=== PATIENT | male | born 1975 | race Hispanic/Latino ===

== ENCOUNTER 2022-12-17 19:55 | Emergency (ER) | payer SELFPAY ==
--- OUTSIDE RECORDS SUMMARY | 2022-12-17 20:02 | XMS REPORT | Continuity of Care Document ---
:1975 Author Organization [facility] t Address [address] [facility]. [address] [place] [address] Care Team Providers Name Role Phone Unavailable Unavailable Unavailable Problems This patient has no known problems. Allergies, Adverse Reactions, Alerts This patient has no known allergies or adverse reactions. Medications This patient has no known medications. Procedures This patient has no known procedures. Results Test Description Test Time Test Comments Results Result Comments Source CBC W/AUTO DIFF WITH PLATELETS 2021-11-07 04:24:30 Test Item Value Reference Range Interpretation Comme nts WBC (test code = 1001) 7.4 K/UL 3.5-11.0 RBC (test code = 1002) 4.82 M/UL 4.50-6.10 HEMOGLOBIN (test code = 15.2 G/DL 13.5-17.0 1003) HEMATOCRIT (test code = 43.6 % 40.0-51.0 1004) MCV (test code = 1005) 90.5 fL 80.0-99.0 MCH (test code = 1006) 31.5 PG 25.0-33.0 MCHC (test code = 1007) 34.9 G/DL 31.0-36.0 RDW (test code = 1038) 12.8 % 11.5-15.0 NEUTROPHILS (test code = 59.0 % 1008) LYMPHOCYTES (test code = 29.3 % 1010) MONOCYTES (test code = 1011) 8.3 % EOSINOPHILS (test code = 2.6 % 1012) BASOPHILS (test code = 1013) 0.5 % IMMATURE GRANULOCYTES (test 0.3 % code = 1036) NUCLEATED RBCS (test code = 0.0 /100 WBC'S See_Comment [Automated message] The 1065) system which ge nerated this result transmit alyssa reference range: 0.0. The reference range was not u sed to interpret this result as normal/abnormal . PLATELET COUNT (test code = 295 K/UL 774-194 0655) ABSOLUTE NEUTROPHILS (test 4.39 K/UL 1.50-7.50 code = 1066) ABSOLUTE LYMPHOCYTES (test 2.18 K/UL 1.00-4.00 code = 1067) ABSOLUTE MONOCYTES (test 0.62 K/UL 0.20-1.00 code = 1068) ABSOLUTE EOSINOPHILS (test 0.19 K/UL 0.00-0.50 code = 1040) ABSOLUTE BASOPHILS (test 0.04 K/UL 0.00-0.20 code = 1069) ABS IMMATURE GRANULOCYTES 0.02 K/UL 0.00-0.10 (test code = 1020) ABS NUCLEATED RBCS (test 0.00 K/UL 0.00-0.11 UN LESS OTHERWISE INDICATED, code = 02952) ALL TESTING PE RFORMED ATCLINICAL PATH [place] [address] LABORATORY DIRE CTOR: VIOLETTE ARELLANO M.D. CLIA NUMBER [id number] [place]. [id number] CHLAMYDIA, NAAT, [id number] 21:07:45 Test Item Value Reference Range Interpretation Comments CHLAMYDIA, NAAT NEGATIVE NEGATIVE IMPORTA NT NOTICE: SEE (test code = [place] [address]) [email or web address] Note: Assay methodology is nucleic acid amplification b y metal coater operator m ediated amplification ( TMA) utilizing the A ptima Combo 2 Assay. GONORRHEA, NAAT, [id number] 21:07:45 Test Item Value Reference Range Interpretation Comments GONORRHEA, NAAT NEGATIVE NEGATIVE IMPORTA NT NOTICE: SEE (test code = [place] [address]) [email or web address] Note: Assay methodology is nucleic acid amplification b y metal coater operator m ediated amplification ( TMA) utilizing the A ptima Combo 2 Assay. HIV 1/2 4TH GEN, RFLX [id number] 04:35:17 Test Item Value Reference Range Interpretation Comments HIV 1/2 4TH GEN, RFLX CONF (test NON-REACTIVE NON-REACTIVE code = 3514) HEPATITIS PANEL, [id number] 04:35:17 Test Item Value Reference Range Interpretation Comments HEPATITIS A IgM (test NON-REACTIVE NON-REACTIVE code = 11068) HEPATITIS B CORE IgM NON-REACTIVE NON-REACTIVE (test code = 4644) HEPATITIS B SURF AG NON-REACTIVE NON-REACTIVE (test code = 2739) HEPATITIS C ANTIBODY NON-REACTIVE NON-REACTIVE (test code = 4675) INTERPRETATION (NOTE) Hepatitis A HEPATITIS A: (test code sero logy shows no = 2552) evidence of acu te hepatitis A. INTERPRETATION (NOTE) Hepatitis B HEPATITIS B: (test code sero logy shows no = 995[address]) evidence of acu te hepatitis B and no indication of exposure to hepatitis B vir us in the previous colt eight months. INTERPRETATION (NOTE) Hepatitis C HEPATITIS C: (test code ser[place]y [place] no = [address]) evidence of exposure to hepatitisC viru s at this time. I t can take up to 12 months after exposure tothe hepatitis C vir us for antibodies to become detectab le in the blood in certain patient s. [id number] 04:08:49 Test Item Value Reference Range Interpretation Comments RPR RESULT (test NON-REACTIVE NON-REACTIVE code = 3501) RPR TITER (test NOT INDIC. NOT INDIC. UNLESS OTHE RWISE code = 3500) TITER INDICATED, ALL TESTING PERFORMED [facility] [address] [place] [address] 4 LABORATORY DIRE CTOR: VIOLETTE GURROLA M.D. CLIA NUMBER [id number] [facility] [place] [id number] LIPID [id number] 01:22:39 Test Item Value Reference Range Interpretation Comments CHOLESTEROL (test 226 MG/DL <200 H code = 2210) TRIGLYCERIDES (test 98 MG/DL <150 code = 2232) HDL CHOLESTEROL (test 45 MG/DL >39 code = 2220) CALC LDL CHOL (test 160 MG/DL <100 H NOTE: C ALCULATED LDL code = 2237) IS BASED ON IVANIA-BERNARDO METHOD WHICHINCLUDES ADJUSTABLE TRIGLYCERIDE:VL DL CHOLESTEROL RAT IO.THIS FACTOR VARIES B Y MEASURED TRIGLY CERIDE AND NON-HDLCHOL ESTEROL CONCENTRATIONS WITH INCREASED CALCU LATED LDL SEENIN HIGH ER TRIGLYCERIDE OR LOWER NON-HDL SPECIME NS. FOR MOREINFORMATION , SEE CLIENT ANNOUNCE MENT AT [email or web address] Knowledge /CalcLDL-C RISK RATIO LDL/HDL 3.56 RATIO <3.55 H (test code = 2238) COMPREHENSIVE METABOLIC [id number] 01:22:39 Test Item Value Reference Range Interpretation Comments GLUCOSE (test code = 91 MG/DL 70-99 2216) BUN (test code = 9 MG/DL 6-20 2207) CREATININE (test 0.97 MG/DL 0.80-1.40 code = 2214) eGFR (2020 CKD-EPI) 98 >60 (test code = 44872) ML/MIN/1.73 CALC BUN/CREAT (test 9 RATIO 6-28 code = 2235) SODIUM (test code = 141 MEQ/L 417-123 8979) POTASSIUM (test code 4.7 MEQ/L 3.5-5.4 = 2227) CHLORIDE (test code 105 MEQ/L 95-107 = 2214) CARBON DIOXIDE (test 22 MEQ/L 19-31 code = 220) CALCIUM (test code = 9.7 MG/DL 8.5-10.5 2208) PROTEIN, TOTAL (test 7.4 G/DL 6.1-8.3 code = 222) ALBUMIN (test code = 4.3 G/DL 3.5-5.2 2200) CALC GLOBULIN (test 3.1 G/DL 1.9-3.7 code = 2240) CALC A/G RATIO (test 1.4 RATIO 1.0-2.6 code = 2234) BILIRUBIN, TOTAL 0.5 MG/DL See_Comment [Automated message] (test code = 2207) The syste m which generated this result transmitted ref erence range: <=1.2. T he reference range was not used to int erpret this result as normal/abnormal . ALKALINE PHOSPHATASE 106 U/L 40-119 (test code = 2204) AST (test code = 25 U/L 9-50 2217) ALT (test code = 30 U/L 5-50 UNLESS OTH ERWISE 2218) INDICATED, ALL TESTING PERFORM [facility] [place] [address] [facility], [place] [id number] [place] [address] DIRECTOR: VIOLETTE ARELLANO M.D. CLIA NUMBER [id number] [place]EDIT[place] N O. [id number] CBC W/AUTO DIFF WITH [id number] 04:21:47 Test Item Value Reference Range Interpretation Comments WBC (test code = 7.3 K/UL 3.5-11.0 1001) RBC (test code = 4.95 M/UL 4.50-6.10 1002) HEMOGLOBIN (test code 15.5 G/DL 13.5-17.0 = 1003) HEMATOCRIT (test code 46.3 % 40.0-51.0 = 1004) MCV (test code = 93.5 fL 80.0-99.0 1005) MCH (test code = 31.3 PG 25.0-33.0 1006) MCHC (test code = 33.5 G/DL 31.0-36.0 1007) RDW (test code = 12.8 % 11.5-15.0 1038) NEUTROPHILS (test 62.7 % code = 1008) LYMPHOCYTES (test 26.5 % code = 1010) MONOCYTES (test code 8.1 % = 1011) EOSINOPHILS (test 1.5 % code = 1012) BASOPHILS (test code 0.8 % = 1013) IMMATURE GRANULOCYTES 0.4 % (test code = 1036) NUCLEATED RBCS (test 0.0 /100 WBC'S See_Comment [Aut omated code = 1065) message] The sy stem which generated this result transmitted reference range : 0.0. The refere nce range was not u sed to interpret th is result as normal/abnormal . PLATELET COUNT (test 299 K/UL 130-400 code = 1015) ABSOLUTE NEUTROPHILS 4.55 K/UL 1.50-7.50 (test code = 1066) ABSOLUTE LYMPHOCYTES 1.93 K/UL 1.00-4.00 (test code = 1067) ABSOLUTE MONOCYTES 0.59 K/UL 0.20-1.00 (test code = 1068) ABSOLUTE EOSINOPHILS 0.11 K/UL 0.00-0.50 (test code = 1040) ABSOLUTE BASOPHILS 0.06 K/UL 0.00-0.20 (test code = 1069) ABS IMMATURE 0.03 K/UL 0.00-0.10 GRANULOCYTES (test code = 1020) ABS NUCLEATED RBCS 0.00 K/UL 0.00-0.11 (test code = 44148) HEMOGLOBIN [id number] 03:20:00 Test Item Value Reference Range Interpretation Comments HEMOGLOBIN A1c (test code = 24136) 5.6 % 4.2-5.6
--- NOTE | 2022-12-17 22:00 | RAD REPORT ---
EXAM DESCRIPTION: Michelle Single View12/17/2022 9:43 pm CLINICAL HISTORY: Chest pain COMPARISON: 2012 FINDINGS: The lungs appear clear of acute infiltrate. The heart is normal size IMPRESSION: No acute abnormalities displayed
[2022-12-17 22:25] LABS: Absolute Lymphocytes (CBC) 2.4 K/uL (0.7-4.9); Lymphocytes % 27.6 % (15.3-44.8); MCV 94.5 fL (80-100); MPV 8.1 fL (7.6-11.3); RBC Red Blood Cell Count 4.86 M/uL (4.33-5.43)
[2022-12-17 22:40] LABS: Albumin 3.5 g/dL (3.4-5.0); Bilirubin Direct 0.1 mg/dL (0-0.2); Bilirubin Indirect, Calculated 0.5 mg/dL (0.2-0.8); Bilirubin Total 0.6 mg/dL (0.2-1.0); Magnesium 2.3 mg/dL (1.6-2.4); Protein, Total 7.7 g/dL (6.4-8.2); Troponin High Sensitivity 4.9 pg/mL (<58.9)
[2022-12-17 23:54] LABS: Specific Gravity 1.022 (1.005-1.030); Urine Bacteria None Seen /HPF (<20); Urine Bilirubin NEGATIVE (Negative); Urine Blood Negative (Negative); Urine Clarity Clear (Clear); Urine Color Light-Yellow (Yellow); Urine Glucose NEGATIVE (Negative); Urine Mucus Slight /HPF (None Seen); Urine Protein NEGATIVE (Negative); Urine RBC <5 /HPF (None Seen); Urine Urobilinogen 1+ (Normal)
[2022-12-18 00:16] LABS: Barbiturates NEGATIVE (NEGATIVE); Benzodiazepines NEGATIVE (NEGATIVE); Cocaine POSITIVE (NEGATIVE); METHAMPHETAM NEGATIVE (NEGATIVE); Methadone NEGATIVE (NEGATIVE); Opiates NEGATIVE (NEGATIVE); Phencyclidine NEGATIVE (NEGATIVE); THC Cannibis POSITIVE (NEGATIVE)
[2022-12-18 00:38] LABS: Protime INR 0.94
--- NOTE | 2022-12-18 02:40 | ER ---
Nurse's Notes [facility] Name: Henrik Mack Age: 47 yrs Sex: Male : 1975 Arrival Date: 12/17/2022 Time: 19:55 Bed 25 Private MD: Diagnosis: Cocaine use, unspecified, uncomplicated;Chest pain, unspecified;Dizziness and giddiness Presentation: 12/17 21:01 Chief complaint: Patient states: I have been feeling dizzy and light headed since 3 Saturday. I feel like my speech is slurred and i feel like i am weak all over. I started having chest pains about an hour and a half ago. I have not had any nausea or vomiting. 21:03 Coronavirus screen: Vaccine status:. Ebola Screen: No symptoms or risks identified at 3 this time. Initial Sepsis Screen: Does the patient meet any 2 criteria? No. Patient's initial sepsis screen is negative. Does the patient have a suspected source of infection? No. Patient's initial sepsis screen is negative. Risk Assessment: Do you want to hurt yourself or someone else? Patient reports no desire to harm self or others. Onset of symptoms was December 17, 2022. 21:03 Method Of Arrival: Ambulatory kd3 21:03 Acuity: ERIK 3 kd3 Triage Assessment: 21:05 General: Appears in no apparent distress. Behavior is calm, cooperative. Pain: kd3 Complains of pain in headache. Cardiovascular: Patient's skin is warm and dry. Rhythm is sinus rhythm. Historical: - Allergies: 21:05 No Known Allergies; kd3 - Immunization history:: Adult Immunizations up to date. - Social history:: Smoking status: Patient reports the use of cigarette tobacco products, 3 a day . Screenin:07 VAN Screening: Arm Drift: Patient shows no arm weakness. Patient is VAN negative. kd3 22:48 [facility] ED Fall Risk Assessment (Adult) History of falling in the last 3 months, cm10 including since admission No falls in past 3 months (0 pts) Confusion or Disorientation No (0 pts) Intoxicated or Sedated No (0 pts) Impaired Gait No (0 pts) Mobility Assist Device Used No (0 pt) Altered Elimination No (0 pt) Score/Fall Risk Level 0 - 2 = Low Risk Oriented to surroundings, Maintained a safe environment, Educated pt \T\ family on fall prevention, incl call for assistance when getting out of bed. Abuse screen: Denies threats or abuse. Denies injuries from another. Nutritional screening: No deficits noted. Tuberculosis screening: No symptoms or risk factors identified. Assessment: 22:47 General: Appears in no apparent distress. comfortable, Behavior is calm, cooperative. cm10 Pain: Pain radiates to right jaw and left jaw Pain began suddenly. Neuro: No deficits noted. Level of Consciousness is awake, alert, Oriented to person, place, time, situation. Cardiovascular: No deficits noted. Capillary refill < 3 seconds Rhythm is regular. Respiratory: No deficits noted. Airway is patent Respiratory effort is even, unlabored, Respiratory pattern is regular, symmetrical. Derm: No deficits noted. Skin is intact, Skin is pink, warm \T\ dry. Vital Signs: 21:03 BP 135 / 79; Pulse 66; Resp 16; Temp 98.2(O); Pulse Ox 100% on R/A; Weight 115.67 kg; kd3 Height 5 ft. 8 in. ; 22:30 BP 115 / 78; Pulse 70; Resp 16; Pulse Ox 96% on R/A; cm10 12/18 02:03 BP 136 / 98; Pulse 65; Resp 19; Pulse Ox 100% on R/A; kd3 12/17 21:03 Body Mass Index 38.77 (115.67 kg, 172.72 cm) kd3 NIH Stroke Scale Scores: 12/17 21:07 NIHSS Score: 0 kd3 ED Course: 19:58 Patient arrived in ED. mr 20:34 EKG completed in triage. Results shown to MD. kd3 20:55 EKG done. oe 21:05 Triage completed. kd3 21:07 Berry Riley PA is PHCP. cp 21:07 Eldon Nava MD is Attending Physician. cp 21:10 Attending Physician role handed off by Eldon Nava MD melania 21:10 Berry Muñoz MD is Attending Physician. melania 21:34 Anabelle Quiñonez, PAPA is Primary Nurse. cm10 21:44 XRAY Chest (1 view) In Process Unspecified. EDMS 22:12 Basic Metabolic Panel Sent. bc6 22:12 CBC with Diff Sent. bc6 22:12 D-Dimer Sent. bc6 22:12 LFT's Sent. bc6 22:12 Magnesium Sent. bc6 22:12 PT-INR Sent. bc6 22:12 Troponin HS Sent. bc6 22:12 Inserted saline lock: 20 gauge in right antecubital area, using aseptic technique. bc6 22:49 Arm band placed on Patient placed in an exam room, on a stretcher. cm10 22:49 Patient has correct armband on for positive identification. Client placed on continuous cm10 cardiac and pulse oximetry monitoring. NIBP monitoring applied. 22:49 Patient maintains SpO2 saturation greater than 95% on room air. cm10 23:35 Urinalysis W/Microscopic Sent. cm10 23:35 UDS Sent. cm10 23:44 D-Dimer Sent. kd3 23:44 PT-INR Sent. kd3 12/18 00:28 CT Head Brain wo Cont In Process Unspecified. EDMS 00:29 CT Aorta for Dissection In Process Unspecified. EDMS 02:01 Troponin High Sensitivity Sent. kd3 02:38 Adair Laura MD is Referral Physician. cp 02:38 Referral Physician role handed off by Adair Laura MD cp 02:49 No provider procedures requiring assistance completed. IV discontinued, intact, kd3 bleeding controlled, No redness/swelling at site. Pressure dressing applied. Administered Medications: 02:48 Drug: Meclizine PO 25 mg Route: PO; kd3 02:50 Follow up: Response: No adverse reaction kd3 02:49 Drug: Aspirin PO Chewable Tablet 324 mg Route: PO; kd3 02:50 Follow up: Response: No adverse reaction kd3 Medication: 12/17 22:49 VIS not applicable for this client. cm10 Outcome: 12/18 02:39 Discharge ordered by . cp 02:49 Discharged to home ambulatory. kd3 02:49 Condition: stable 02:49 Discharge instructions given to patient, Instructed on discharge instructions, follow up and referral plans. Demonstrated understanding of instructions, follow-up care, medications, Prescriptions given X 1. 02:50 Patient left the ED. kd3 NIH Stroke Scale - NIH Stroke Score Date: 12/17/2022 Time: 21:07 Total Score = 0 10. Dysarthria (speech clarity - read or repeat words) - 0(Normal) 11. Extinction and Inattention (visual/tactile/auditory/spatial/personal) - 0(No abnormality) 1a. Level of Consciousness (LOC) - 0(Alert) 1b. Level of Consciousness (LOC) (Month \T\ Age) - 0(Both) 1c. LOC Commands (Open \T\ Closes Eyes/[employer]) - 0(Both) 2. Best Gaze (Lateral Gaze Paresis) - 0(Normal) 3. Visual Field Loss - 0(No visual loss) 4. Facial Palsy - 0(Normal) 5a. Left Arm: Motor (10-second hold) - 0(No drift) 5b. Right Arm: Motor (10-second hold) - 0(No drift) 6a. Left Leg: Motor (5-second hold - always test supine) - 0(No drift) 6b. Right Leg: Motor (5-second hold - always test supine) - 0(No drift) 7. Limb Ataxia (finger/nose \T\ heel/castro - test with eyes open) - 0(Absent) 8. Sensory Loss (pinprick arms/legs/face) - 0(Normal) 9. Best Language: Aphasia (description/naming/reading) - 0(No aphasia) Initials: kd3 Signatures: Dispatcher [employer] EDBerry Su MD MD cha Rivera, Mary mr Berry Riley, Gwyn Cason cp, Kyli, PAPA RN kd3 Alondra Rod6 Anabelle Quiñonez, RN RN cm10
--- NOTE | 2022-12-18 02:40 | EDPHYS ---
Physician Documentation [facility] Name: Henrik Mack Age: 47 yrs Sex: Male : 1975 Arrival Date: 12/17/2022 Time: 19:55 Bed 25 Private MD: ED Physician Berry Muñoz HPI: 12/17 21:30 This 47 yrs old Male presents to ER via Ambulatory with complaints of Chest cp Pain, Dizziness. 21:30 The patient or guardian reports chest pain that is located primarily in the anterior cp chest wall. 21:30 Onset: 2 hour(s) ago. The pain radiates to the left arm, jaw. Associated signs and cp symptoms: Pertinent positives: shortness of breath, dizziness and weakness since this past Saturday, Pertinent negatives: abdominal pain, cough, diaphoresis, lower extremity pain, lower extremity swelling. The chest pain is described as a pressure. Duration: The patient or guardian reports a single episode, that is still ongoing. Severity of pain: in the emergency department the pain is unchanged despite home interventions. Historical: - Allergies: 21:05 No Known Allergies; kd3 - Immunization history:: Adult Immunizations up to date. - Social history:: Smoking status: Patient reports the use of cigarette tobacco products, 3 a day . ROS: 21:35 Eyes: Negative for injury, pain, redness, and discharge. cp 21:35 Constitutional: Negative for body aches, chills, fever, poor PO intake. 21:35 ENT: Negative for drainage from ear(s), ear pain, sore throat, difficulty swallowing, difficulty handling secretions. 21:35 Cardiovascular: Positive for chest pain, Negative for edema, palpitations. 21:35 Respiratory: Positive for shortness of breath, Negative for cough, wheezing. 21:35 Abdomen/GI: Negative for abdominal pain, vomiting, diarrhea, constipation. 21:35 Back: Negative for injury or acute deformity. 21:35 Neuro: Positive for dizziness, weakness, Negative for altered mental status, headache. 21:35 All other systems are negative. Exam: 21:40 Constitutional: The patient appears in no acute distress, alert, awake, cp non-diaphoretic, non-toxic, well developed, well nourished, uncomfortable. 21:40 Head/Face: Normocephalic, atraumatic. cp 21:40 Eyes: Periorbital structures: appear normal, Pupils: equal, round, and reactive to light and accomodation, Extraocular movements: intact throughout, Conjunctiva: normal, no exudate, no injection, Sclera: no appreciated abnormality, Lids and lashes: appear normal, bilaterally. 21:40 ENT: External ear(s): are unremarkable, Nose: is normal, Mouth: Lips: moist, Oral mucosa: pink and intact, moist, Posterior pharynx: is normal, airway is patent, no erythema, no exudate. 21:40 Neck: ROM/movement: is normal, is supple, without pain, no range of motions limitations, no meningismus. 21:40 Chest/axilla: Inspection: normal. 21:40 Cardiovascular: Rate: normal, Rhythm: regular, Heart sounds: murmur, not appreciated, Edema: is not appreciated, JVD: is not appreciated. 21:40 Respiratory: the patient does not display signs of respiratory distress, Respirations: normal, no use of accessory muscles, no retractions, labored breathing, is not present, Breath sounds: are clear throughout, no decreased breath sounds, no stridor, no wheezing. 21:40 Abdomen/GI: Inspection: abdomen appears normal, Palpation: abdomen is soft and non-tender, in all quadrants. 21:40 Back: CVA tenderness, is absent. 21:40 Neuro: Orientation: to person, place \T\ time. Mentation: is normal, Cerebellar function: is grossly normal, Motor: moves all fours, strength is normal, Sensation: no obvious gross deficits. Vital Signs: 21:03 BP 135 / 79; Pulse 66; Resp 16; Temp 98.2(O); Pulse Ox 100% on R/A; Weight 115.67 kg; kd3 Height 5 ft. 8 in. ; 22:30 BP 115 / 78; Pulse 70; Resp 16; Pulse Ox 96% on R/A; cm10 12/18 02:03 BP 136 / 98; Pulse 65; Resp 19; Pulse Ox 100% on R/A; kd3 12/17 21:03 Body Mass Index 38.77 (115.67 kg, 172.72 cm) kd3 NIH Stroke Scale Scores: 12/17 21:07 NIHSS Score: 0 kd3 MDM: 21:10 Patient medically screened. melania 22:00 Differential diagnosis: abnormal EKG, acute myocardial infarction, acute pericarditis, cp pericarditis, pleurisy, pneumonia, pneumothorax, pulmonary embolus, stable angina, thoracic aortic disection, unstable angina, CVA, TIA. 12/18 02:37 The patient was given aspirin in the Emergency Department. 02:37 Data reviewed: vital signs, nurses notes, lab test result(s), EKG, radiologic studies, cp CT scan, plain films. Consideration of Admission/Observation Escalation of care including admission/observation considered. I considered the following discharge prescriptions or medication management in the emergency department Medications were administered in the Emergency Department. See MAR. Counseling: I had a detailed discussion with the patient and/or guardian regarding: the historical points, exam findings, and any diagnostic results supporting the discharge/admit diagnosis, lab results, radiology results, the need for outpatient follow up, a family practitioner, to return to the emergency department if symptoms worsen or persist or if there are any questions or concerns that arise at home. 12/17 21:23 Order name: Basic Metabolic Panel; Complete Time: 23: 12/18 01:38 Interpretation: Normal except: GLUC 108; GFR 73. 12/17 21:23 Order name: CBC with Diff; Complete Time: 23: 12/17 21:23 Order name: D-Dimer; Complete Time: :38 12/17 21:23 Order name: LFT's; Complete Time: 23: 12/18 01:38 Interpretation: Normal except: GLOB 4.2; A/G 0.8. 12/17 21:23 Order name: Magnesium; Complete Time: 23: 12/17 21:23 Order name: NT PRO-BNP; Complete Time: 23: 12/17 21:23 Order name: PT-INR; Complete Time: :38 12/17 21:23 Order name: Troponin HS; Complete Time: 23:09 12/17 23:08 Order name: Urinalysis W/Microscopic; Complete Time: : 12/18 01:38 Interpretation: Normal except: UUROB 1+. 12/17 23:08 Order name: UDS; Complete Time: :38 12/18 01:38 Interpretation: Normal except: TIMI POSITIVE; THC POSITIVE. 12/18 01:42 Order name: Troponin High Sensitivity; Complete Time: 02:37 cp 12/17 21:23 Order name: XRAY Chest (1 view); Complete Time: 23:09 cp 12/17 23:08 Order name: CT Head Brain wo Cont cp 12/17 23:11 Order name: CT Aorta for Dissection cp 12/17 21:23 Order name: EKG; Complete Time: 21:23 cp 12/17 21:23 Order name: Cardiac monitoring; Complete Time: 22:12 cp 12/17 21:23 Order name: EKG - Nurse/Tech; Complete Time: 21:23 cp 12/17 21:23 Order name: IV Saline Lock; Complete Time: 22:12 cp 12/17 21:23 Order name: Labs collected and sent; Complete Time: 22:12 cp 12/17 21:23 Order name: O2 Per Protocol; Complete Time: 22:12 cp 12/17 21:23 Order name: O2 Sat Monitoring; Complete Time: 22:12 cp Administered Medications: 02:48 Drug: Meclizine PO 25 mg Route: PO; kd3 02:50 Follow up: Response: No adverse reaction kd3 02:49 Drug: Aspirin PO Chewable Tablet 324 mg Route: PO; kd3 02:50 Follow up: Response: No adverse reaction kd3 Disposition Summary: 12/18/22 02:39 Discharge Ordered Location: Home cp Problem: new cp Symptoms: have improved cp Condition: Stable cp Diagnosis - Cocaine use, unspecified, uncomplicated cp - Chest pain, unspecified cp - Dizziness and giddiness cp Followup: cp - With: Adair Laura MD - When: 2 - 3 days - Reason: Recheck today's complaints Followup: cp - With: Private Physician - When: 2 - 3 days - Reason: Recheck today's complaints Discharge Instructions: - Discharge Summary Sheet cp - Nonspecific Chest Pain, Adult cp - Cocaine Use Disorder cp - Dizziness cp - Aspirin and Your Heart cp Forms: - Medication Reconciliation Form cp - Thank You Letter cp - Antibiotic Education cp - Prescription Opioid Use cp - [email or web address] cp Prescriptions: - Meclizine 25 mg Oral Tablet - take 1 tablet by ORAL route every 8 hours As needed; 30 tablet; Refills: 0, cp Product Selection Permitted NIH Stroke Scale - NIH Stroke Score Date: 12/17/2022 Time: 21:07 Total Score = 0 10. Dysarthria (speech clarity - read or repeat words) - 0(Normal) 11. Extinction and Inattention (visual/tactile/auditory/spatial/personal) - 0(No abnormality) 1a. Level of Consciousness (LOC) - 0(Alert) 1b. Level of Consciousness (LOC) (Month \T\ Age) - 0(Both) 1c. LOC Commands (Open \T\ Closes Eyes/Health And Physical Education Teacher) - 0(Both) 2. Best Gaze (Lateral Gaze Paresis) - 0(Normal) 3. Visual Field Loss - 0(No visual loss) 4. Facial Palsy - 0(Normal) 5a. Left Arm: Motor (10-second hold) - 0(No drift) 5b. Right Arm: Motor (10-second hold) - 0(No drift) 6a. Left Leg: Motor (5-second hold - always test supine) - 0(No drift) 6b. Right Leg: Motor (5-second hold - always test supine) - 0(No drift) 7. Limb Ataxia (finger/nose \T\ heel/castro - test with eyes open) - 0(Absent) 8. Sensory Loss (pinprick arms/legs/face) - 0(Normal) 9. Best Language: Aphasia (description/naming/reading) - 0(No aphasia) Initials: kd3 Signatures: Dispatcher [employer] EDBerry Su MD MD cha Page, Corey, PA PA cp Doucette, Kyli RN RN kd3 Corrections: (The following items were deleted from the chart) 12/19 21:35 Constitutional: Negative for body aches, chills, fever, poor PO cp intake, cp 12/19 00:12/18 21:35 Cardiovascular: Positive for chest pain, Negative for edema, cp palpitations, cp 12/19 00:12/18 21:35 Respiratory: Positive for shortness of breath, Negative for cough, cp wheezing, cp 12/19 00:12/18 21:35 Abdomen/GI: Negative for abdominal pain, vomiting, diarrhea, cp constipation, cp 12/19 00:12/18 21:35 Back: Negative for injury or acute deformity, cp cp 12/19 00:12/18 21:35 Neuro: Positive for dizziness, weakness, Negative for altered cp mental status, headache, cp 12/19 00:12/18 21:35 Eyes: Negative for injury, pain, redness, and discharge, cp cp 12/19 00:12/18 21:35 ENT: Negative for drainage from ear(s), ear pain, sore throat, cp difficulty swallowing, difficulty handling secretions, cp 12/19 00:12/18 21:35 All other systems are negative, cp cp
[2022-12-18] MEDS ORDERED: ASPIRIN 81 MG CHEWABLE TABLET ONE (02:48)
[2022-12-18] MEDS ORDERED: MECLIZINE HCL 12.5 MG TAB ONE (02:48)
[2022-12-18 03:08] VITALS: TEMP 98.2
[2022-12-18 03:10] VITALS: BP 136/98; O2SAT 100
--- NOTE | 2022-12-18 20:32 | RAD REPORT ---
EXAM DESCRIPTION: CT of the head without contrast CLINICAL HISTORY: DIZZINESS COMPARISON: None available TECHNIQUE: Axial CT of the head obtained from the skull apex to the skull base without contrast. Thi s exam was performed according to our departmental dose-optimization program, which includes automate d exposure control, adjustment of the mA and/or kV according to patient size and/or use of iterative reconstruction technique. FINDINGS: No acute intracranial hemorrhage identified. Probable arachnoid cyst posterior to the left cerebellar hemisphere. This may be an incidental finding. Additional probable arachnoid cyst anterio r medial cranial fossa on the right. No other mass, mass effect, midline shift, abnormal extra-axial fluid collection or CT evidence of acute ischemic change identified. Ventricular system and sulcal sp aces are normal in size and morphology. No acute abnormalities of the supratentorial white matter, basal ganglia, cerebellum, or brainstem. The visualized paranasal sinuses and the mastoid air cells are relatively well aerated. No skull fr acture identified. Visualized orbits and globes show no acute abnormality. IMPRESSION: 1. Probable incidental arachnoid cysts demonstrated posterior to the left cerebellar hem isphere and anterior to the right temporal lobe. 2. No other acute intracranial abnormality identified on noncontrast CT. Electronically signed by: Lauren Qiu MD 12/18/2022 12:56 AM CDT Due to temporary technical issues with the PACS/Fluency reporting system, reports are being signed by the in house radiologists without review as a courtesy to insure prompt reporting. The interpreting radiologist is fully responsible for the content of the report.
--- NOTE | 2022-12-18 20:38 | EKG ---
Test Date: 2022-12-17 Test Time: 20:33:50 [employer]: DEBORA MEASUREMENT RESULTS: Intervals: Rate: 75 CO: 182 QRSD: 90 QT: 372 QTc: 415 [place]: P: 38 CO: 182 QRS: 75 T: 37 INTERPRETIVE STATEMENTS: Normal sinus rhythm Normal ECG No previous ECG available for comparison Electronically Signed On 12-18-22 20:33:02 CDT by Jae Dupree
--- NOTE | 2022-12-18 20:42 | RAD REPORT ---
EXAM DESCRIPTION: CTA of the chest, abdomen and pelvis with contrast. CLINICAL HISTORY: Chest pain COMPARISON: None Available. TECHNIQUE: CTA of the chest , abdomen, and pelvis obtained following the administration of IV contra st. 3-D/MIP reformatted images available. This exam was performed according to our departmental dose- optimization program, which includes automated exposure control, adjustment of the mA and/or kV accor ding to patient size and/or use of iterative reconstruction technique. FINDINGS: Prominent artifact from patient's upper extremities. Vascular: Great vessels have normal anatomic configuration and are patent. Thoracic aorta is normal i n caliber without evidence of aneurysm or dissection. Abdominal aorta is also patent without aneurysm or dissection. The celiac trunk and branches, superior mesenteric, and inferior mesenteric arteries are patent. Bilateral renal arteries are patent. Bilateral iliac arteries are patent with mild plaque at the level of the distal common iliac arteries/iliac bifurcations. No significant stenosis. Visual ized pelvic runoff is patent. Chest: Thyroid: No abnormalities of the visualized thyroid gland. Pulmonary arteries: Contrast bolus is optimized for assessment of pulmonary arteries. Main pulmonary artery is not enlarged. Heart: No cardiomegaly, significant pericardial effusion, or coronary artery atherosclerosis Lymph Nodes: No enlarged mediastinal, hilar, or axillary lymph nodes identified. Esophagus: Small hiatal hernia. Esophagus is otherwise unremarkable Other: No additional findings. Lungs: No airspace opacities identified. Pleura: No pleural effusion or pneumothorax. Trachea/Airways: No abnormalities of the visualized trachea or airways. Abdomen: Liver: Artifact partially limits evaluation. Visualized liver has normal homogeneous parenchyma witho ut suspicious liver lesion identified. Gallbladder: No calcified gallstones. Spleen, Pancreas, and Adrenal Glands: The spleen, pancreas, and adrenal glands are unremarkable. Kidneys: Punctate nonobstructing calculus interpolar left kidney. No suspicious renal mass or hydro nephrosis. Stomach: Small hiatal hernia. Other: No free intraperitoneal air. No free fluid or lymphadenopathy. Pelvis: Bladder: Mild bladder wall thickening. Bowel: No dilated loops of large or small bowel.No acute inflammatory changes. Appendix: Normal appendix. Pelvis: No suspicious mass. Bones: No destructive bone lesions identified. IMPRESSION: 1. No aortic aneurysm or dissection. 2. Mild bladder wall thickening could be due to incomplete distention. If there is concern for cystit is, correlate with urinalysis. 3.. No other acute abnormality on CT of the chest, abdomen and, and pelvis. 4. Nonobstructing left renal calculus. 5. Small hiatal hernia. Electronically signed by: Lauren Qiu MD 12/18/2022 1:14 AM CDT Due to temporary technical issues with the PACS/Fluency reporting system, reports are being signed by the in house radiologists without review as a courtesy to insure prompt reporting. The interpreting radiologist is fully responsible for the content of the report.
== END 2022-12-18 02:50 | disposition home or self-care (01) ==
LOC: ER 19:55
DX: F14.90 Cocaine use, unspecified, uncomplicated (principal); R42 Dizziness and giddiness
CPT/HCPCS: 36415; 70450; 71045; 71275; 74175; 80048; 80076; 80307; 81001; 83735; 83880; 84484; 85025; 85379; 85610; 93005; J8597; Q9967